=== PATIENT | female | born 1955 | race Caucasian/White ===

== ENCOUNTER 2017-08-05 10:46 | Emergency (ER) | payer MEDICARE, MEDICAID ==
[2017-08-05 11:58] VITALS: BP 135/98
--- NOTE | 2017-08-05 12:07 | UC ---
Throat Pain/Nasal [place] HPI - HPI Summary HPI Summary: 62 year old female with sinus pressure. c/o sinus pressure, right ear clogged, low grade temp, and headache worsening over 2 weeks. yellow phlegm. some wheeze at times. still smoking. PCN allergy. [ End ] - History of Current Complaint Chief Complaint: UCGeneralIllness Stated Complaint: HEAD CONGESTION, EAR PAIN Time Seen by Provider: 08/05/17 12:00 Hx Obtained From: Patient Onset/Duration: Gradual Onset Pain Intensity: 8 - Allergies/Home Medications Allergies/Adverse Reactions: Allergies Allergy/AdvReac Type Severity Reaction Status Date / Time Penicillins Allergy Hives/Diff. Verified 08/05/17 11:52 Breathing/I tching Home Medications: Home Medications rOPINIRole TAB* [Requip TAB*] 1 mg PO DAILY 08/05/17 [History Confirmed 08/05/17 ] traZODone TAB* [Desyrel TAB*] 50 mg PO BEDTIME 08/05/17 [History Confirmed 08/05] PMH/Surg Hx/FS Hx/Imm Hx Previously Healthy: Yes Endocrine History: Dyslipidemia Cardiovascular History: Hypertension Respiratory History: COPD - Surgical History Surgical History: Yes Surgery Procedure, Year, and Place: Mitral valve replacement, septal wall defect repair. hysterectomy. aortic/femoral bypass 05/2015; 08/2015 adhesions d /t bypass surg - Family History Known Family History: Positive: Hypertension - Social History Alcohol Use: None Substance Use Type: None Smoking Status (MU): Light Every Day Tobacco Smoker Type: Cigarettes Amount Used/How Often: < 1/2 ppd Length of Time of Smoking/Using Tobacco: ~ 30 yrs Cessation Counseling: Patient Advised to Stop Review of Systems Constitutional: Fatigue ENT: Ear Ache, Nasal Discharge, Sinus Congestion, Sinus Pain/Tenderness Respiratory: Cough Is Patient Immunocompromised?: No All Other Systems Reviewed And Are Negative: Yes Physical Exam Triage Information Reviewed: Yes Appearance: Well-Appearing, No Pain Distress, Well-Nourished Vital Signs: Initial Vital Signs Temp 98 F 08/05/17 11:51 Pulse 78 08/05/17 11:51 Resp 18 08/05/17 11:51 BP 135/98 08/05/17 11:51 Pulse Ox 99 08/05/17 11:51 Vital Signs Reviewed: Yes Eye Exam: Normal ENT Exam: Normal ENT: Positive: Nasal drainage, TM bulging - r, TM dull - r, TM red - r Dental Exam: Normal Neck exam: Normal Neck: Positive: 1 Respiratory Exam: Normal Respiratory: Positive: Chest non-tender, No accessory muscle use, Wheezing - mild exac b/l LE. Negative: Respiratory distress, Crackles, Rhonchi, Stridor Cardiovascular Exam: Normal Musculoskeletal Exam: Normal Neurological Exam: Normal Psychological Exam: Normal Skin Exam: Normal Throat Pain/Nasal Course/Dx - Course Course Of Treatment: with PCN allergy and COPD will start doxy for COPD exac. No steroids required at this time. Start antihistamine as well - Differential Dx/Diagnosis Differential Diagnosis/HQI/PQRI: Otitis Media Provider Diagnoses: COPD exacerbation / Right AOM / Sinusitis Discharge - Discharge Plan Condition: Good Disposition: HOME Prescriptions: DOXYcycline CAP(*) [DOXYcycline 100MG CAP(*)] 100 mg PO BID #20 cap Patient Education Materials: Ear Infection (ED) Referrals: Love Baker NP [Primary Care Provider] - 3 Days Additional Instructions: For your cough with history of COPD you will be given doxycycline to help improve your cough/COPD exacerbation , ear infection and sinusitis. If your symptoms are not improving please seek medical care. Please do not take your multivitamin within 4 hours of the doxycycline. Good luck quitting smoking.
== END 2017-08-05 12:16 | disposition home or self-care (01) ==
LOC: UCCORT 10:46
DX: J44.1 Chronic obstructive pulmonary disease with (acute) exacerbation (principal); H66.91 Otitis media, unspecified, right ear; J32.9 Chronic sinusitis, unspecified; F17.210 Nicotine dependence, cigarettes, uncomplicated; Z88.0 Allergy status to penicillin
CPT/HCPCS: 99212; G0463